=== PATIENT | female | born 1965 | race Two or more races ===

== ENCOUNTER 2016-11-02 18:58 | Emergency (ER) | payer SELFPAY ==
[~2016-11-02] VITALS: Ht 160 cm; Wt 72.6 kg
[2016-11-02 19:30] VITALS: BP 139/103
[2016-11-02] MEDS ORDERED: KETOROLAC TROMETHAMINE INJ 30 MG/ML VIAL ONE (19:57)
[2016-11-02] MEDS ORDERED: METOCLOPRAMIDE HCL 10 MG/2 ML VIAL ONE (19:57)
[2016-11-02] MEDS ORDERED: diphenhydrAMINE HCL 50 MG/ML VIAL ONE (19:57)
[2016-11-02] MEDS ORDERED: diphenhydrAMINE HCL 50 MG/ML VIAL IV ONE (20:00)
[2016-11-02] MEDS ORDERED: METOCLOPRAMIDE HCL 10 MG/2 ML VIAL IV ONE (20:00)
[2016-11-02] MEDS ORDERED: KETOROLAC TROMETHAMINE INJ 30 MG/ML VIAL IV ONE (20:00)
== END 2016-11-02 21:11 | disposition home or self-care (01) ==
LOC: ER 18:59
DX: F43.9 Reaction to severe stress, unspecified (principal); R51 Headache; I10 Essential (primary) hypertension; Z98.890 Other specified postprocedural states
CPT/HCPCS: 96374; 96375; 99284; A4606; J1200 ×2; J1885 ×2; J2765 ×2; Z7610

== ENCOUNTER 2019-01-05 20:04 | Emergency (ER) | payer MEDICAID ==
[~2019-01-05] VITALS: Ht 160 cm; Wt 65.8 kg
[2019-01-05] MEDS ORDERED: MORPHINE SULFATE INJ 4 MG/ML DISP.SYRIN ONE (20:57)
[2019-01-05] MEDS ORDERED: ONDANSETRON HCL/PF 4 MG/2 ML VIAL ONE (20:57)
[2019-01-05] MEDS ORDERED: ONDANSETRON HCL/PF 4 MG/2 ML VIAL IVP ONE (21:00)
[2019-01-05] MEDS ORDERED: IV NS 0.9% 1,000 ML BAG IV ONE (21:00)
--- NOTE | 2019-01-05 21:04 | NUR ---
PT PRESENTED TO THE ER WITH A C/O NECK PAIN. PT'S NECK APPEARS RED AND PT IS UNABLE TO MOVE HER HEAD WITHOUT GRIMACING WITH PAIN. PT IS NIGERIEN SPEAKING AND PT'S SON IS AT THE BEDSIDE.
[2019-01-05] MEDS: MORPHINE SULFATE INJ 2 MG/ML DISP.SYRIN IV ONE (21:05)
[2019-01-05] MEDS ORDERED: IOHEXOL-300 100 ML VIAL IV ONE (21:13)
[2019-01-05 21:23] LABS: BASOPHILS # (AUTO) 0.1 /CMM (0.0-0.2); BASOPHILS % (AUTO) 0.8 % (0.0-2.0); EOSINOPHILS % (AUTO) 0.8 % (0.0-6.0); HEMATOCRIT 39 % (33-45); HEMOGLOBIN 12.9 g/dL (11.5-14.8); LYMPHOCYTES # (AUTO) 3.2 /CMM (0.8-4.8); LYMPHOCYTES % (AUTO) 38.7 % (20.0-44.0); MEAN CORPUSCULAR HGB CONC 33 g/dl (31.0-36.0); MEAN CORPUSCULAR VOLUME 85 fL (82-100); MONOCYTES # (AUTO) 0.5 /CMM (0.1-1.30); MONOCYTES % (AUTO) 6.5 % (2.0-12.0); NEUTROPHILS # (AUTO) 4.4 /CMM (1.8-8.9); NEUTROPHILS % (AUTO) 53.2 % (43.0-81.0); PLATELET COUNT (AUTO) 271 /CMM (150-450); RED BLOOD CELL COUNT(AUTO) 4.59 MIL/uL (4.0-5.2); WHITE BLOOD COUNT (AUTO) 8.3 K/uL (4.3-11.0)
[2019-01-05] MEDS ORDERED: KETOROLAC TROMETHAMINE INJ 30 MG/ML VIAL IV ONE (21:30)
[2019-01-05 21:33] LABS: CALCIUM, SERUM 9.2 mg/dL (8.5-10.1); CREATININE 0.8 mg/dL (0.6-1.3)
[2019-01-05 21:38] LABS: ALBUMIN 3.9 g/dL (3.4-5.0); BILIRUBIN,TOTAL 0.2 mg/dL (0.2-1.0)
[2019-01-05 21:55] LABS: THYROID STIMULATING HORMONE 2.923 uIU/mL (0.358-3.74)
[2019-01-05] MEDS ORDERED: KETOROLAC TROMETHAMINE INJ 30 MG/ML VIAL ONE (22:09)
--- NOTE | 2019-01-05 22:10 | NUR ---
PT RETURNED FROM CT AND WAS C/O PAIN
--- NOTE | 2019-01-05 22:10 | NUR ---
Note aliedean in EDM - 01/06/19 at 0011 by ABDOULAYE PT PRESENTED TO THE ER WITH A C/O NECK PAIN. PT'S NECK APPEARS RED AND PT IS UNABLE TO MOVE HER HEAD WITHOUT GRIMACING WITH PAIN. PT IS MONGOLIAN SPEAKING AND PT'S SON IS AT THE BEDSIDE.
--- NOTE | 2019-01-05 22:11 | NUR ---
PT REC'D MEDICATION ORDERED.
[2019-01-05] MEDS ORDERED: METHOCARBAMOL (500MG) 500 MG TABLET ONE (23:43)
--- NOTE | 2019-01-05 23:47 | NUR ---
IV removed. Catheter intact and site benign. Pressure and 4x4 applied to site. No bleeding noted.
[2019-01-06] MEDS ORDERED: METHOCARBAMOL (500MG) 500 MG TABLET PO ONE
[2019-01-06 00:07] VITALS: BP 141/73
== END 2019-01-06 00:12 | disposition home or self-care (01) ==
LOC: ER 20:08
DX: R25.2 Cramp and spasm (principal); M54.2 Cervicalgia; I10 Essential (primary) hypertension; Z98.890 Other specified postprocedural states
CPT/HCPCS: 36415; 70491; 71045; 80048; 80076; 83605; 84439; 84443; 85025; 85730; 87040 ×2; 93005; 96374; 96375; 99284; J1885; J2270; J2405; J7030; Q9967

== ENCOUNTER 2022-08-20 08:49 | Emergency (ER) | payer MEDICAID ==
[~2022-08-20] VITALS: Ht 160 cm; Wt 63.5 kg
--- NOTE | 2022-08-20 09:05 | NUR ---
BIB Son from Home "Shes haviong a really bad STERLING started yesterday. Nausea" 2 day to pain tends to hyperventilate
--- NOTE | 2022-08-20 09:20 | NUR ---
taken to CT
[2022-08-20] MEDS ORDERED: IBUP-1955 PO (09:25)
[2022-08-20] MEDS ORDERED: ACETAMINOPHEN ES 500 MG TABLET PO ONE (09:30)
[2022-08-20] MEDS ORDERED: PROCHLORPERAZINE EDISYLATE 10 MG/2 ML VIAL IVP ONE (09:30)
[2022-08-20] MEDS ORDERED: IV NS 0.9% 1,000 ML BAG IV ONE (09:30)
[2022-08-20] MEDS ORDERED: diphenhydrAMINE HCL 50 MG/ML VIAL IV ONE (09:30)
--- NOTE | 2022-08-20 09:30 | NUR ---
established IV line 20g LAC
--- NOTE | 2022-08-20 09:31 | NUR ---
Blood sample obtained by clinical laboratory assistant
--- NOTE | 2022-08-20 09:35 | NUR ---
tech at bedside for EKG
--- NOTE | 2022-08-20 09:45 | NUR ---
medicated as ordered
[2022-08-20] MEDS ORDERED: PROCHLORPERAZINE EDISYLATE 10 MG/2 ML VIAL ONE (09:46)
[2022-08-20] MEDS ORDERED: diphenhydrAMINE HCL 50 MG/ML VIAL ONE (09:46)
[2022-08-20] MEDS ORDERED: ACETAMINOPHEN ES 500 MG TABLET ONE (09:47)
[2022-08-20 09:54] LABS: BASOPHILS % (AUTO) 0.5 % (0.0-2.0); EOSINOPHILS % (AUTO) 0.8 % (0.0-6.0); HEMATOCRIT 38 % (33-45); HEMOGLOBIN 12.6 g/dL (11.5-14.8); LYMPHOCYTES # (AUTO) 0.7 K/uL (0.8-4.8); LYMPHOCYTES % (AUTO) 13.3 % (20.0-44.0); MEAN CORPUSCULAR HGB CONC 33 g/dl (31.0-36.0); MEAN CORPUSCULAR VOLUME 85 fL (82-100); MONOCYTES # (AUTO) 0.5 K/uL (0.1-1.30); MONOCYTES % (AUTO) 8.5 % (2.0-12.0); NEUTROPHILS # (AUTO) 4.2 K/uL (1.8-8.9); NEUTROPHILS % (AUTO) 76.9 % (43.0-81.0); PLATELET COUNT (AUTO) 249 K/uL (150-450); RED BLOOD CELL COUNT(AUTO) 4.44 MIL/uL (4.0-5.2); WHITE BLOOD COUNT (AUTO) 5.4 K/uL (4.3-11.0)
[2022-08-20 10:04] LABS: CALCIUM, SERUM 9.3 mg/dL (8.5-10.1); CREATININE 0.8 mg/dL (0.6-1.3); POTASSIUM 3.2 mmol/L (3.5-5.1)
[2022-08-20 10:10] LABS: ALBUMIN 4.1 g/dL (3.4-5.0); BILIRUBIN,DIRECT 0.1 mg/dL (0.0-0.2); BILIRUBIN,TOTAL 0.3 mg/dL (0.2-1.0); TOTAL PROTEIN, SERUM 8.1 g/dL (6.4-8.2)
--- NOTE | 2022-08-20 11:52 | NUR ---
IV removed. Catheter intact and site benign. Pressure and 4x4 applied to site. No bleeding noted.Patient discharged to home in stable condition. Written and verbal after care instructions given. Patient verbalizes understanding of instruction.
[2022-08-20 11:53] VITALS: BP 140/75
== END 2022-08-20 11:52 | disposition home or self-care (01) ==
LOC: ER 09:05
DX: R51.9 Headache, unspecified (principal); I10 Essential (primary) hypertension; Z79.1 Long term (current) use of non-steroidal anti-inflammatories (NSAID)
CPT/HCPCS: 99285; 96374; 70450; 96361; 96375; 93005; 85025; 80048; 80076; 36415; 82962; J0780; J1200; J7030 ×2